=== PATIENT | female | born 1970 | race Hispanic/Latino ===

== ENCOUNTER 2020-08-04 10:14 | Emergency (ER) | payer BC ==
[~2020-08-04] VITALS: Ht 165.1 cm; Wt 100.2 kg
--- NOTE | 2020-08-04 10:30 | Emergency Department Note ---
History of Present Illnes History of Present Illness Chief Complaint: General Medicine Complaints History of Present Illness This is a 50 year old female Chief Complaint Comment PATIENT IN FROM HOME WITH COMPLAINTS OF RIGHT FLANK PAIN/BURNING RADIATING TO ABDOMEN X 1 WEEK. PATIENT COMPLAINS OF NAUSEA, BUT DENIES VOMITING OR DIARRHEA. RATES PAIN 7/10. Historian: Patient Arrival Mode: Car Clinical Research Manager Required: No Onset (how long ago): week(s) (1) Location: R flank Quality: burning Radiation: Reports back, Reports abdomen Severity: mild Onset quality: gradual Duration (how long): week(s) (1) Timing of current episode: constant Progression: worsening Chronicity: new Context: Denies recent illness, Denies recent surgery Relieving factors: none Exacerbating factors: none Associated symptoms: Reports denies other symptoms Treatments prior to arrival: none Past Medical/Family History Physician Review I have reviewed the patient's past medical and family history. Any updates have been documented here. Past Medical History Recent Fever: No Clinical Suspicion of Infectio: No New/Unexplained Change in Ment: No Past Medical History: None Past Surgical History: Cholecysctectomy, Tubal Ligation Review of Systems Review of Systems Constitutional: Reports as per HPI EENTM: Reports no symptoms Cardiovascular: Reports no symptoms Respiratory: Reports no symptoms Gastrointestinal: Reports no symptoms Genitourinary: Reports no symptoms Musculoskeletal: Reports no symptoms Integumentary: Reports as per HPI (Burning from midlineback to midline abdomen on R side) Neurological: Reports no symptoms Psychological: Reports no symptoms Endocrine: Reports no symptoms Hematological/Lymphatic: Reports no symptoms Physical Exam Related Data Allergies: Coded Allergies: No Known Allergies (Unverified , 08/04/20) Triage Vital Signs Vital Signs Date Time Temp Pulse Resp B/P (MAP) Pulse Ox O2 Delivery O2 Flow Rate FiO2 08/04/20 10:17 98.2 89 20 146/80 100 Room Air Vital signs reviewed: Yes Physical Exam CONSTITUTIONAL Constitutional: Present well-developed, Present well-nourished HENT HENT: Present normocephalic, Present atraumatic, Present oropharynx clear/moist, Present nose normal HENT L/R: Present left ext ear normal, Present right ext ear normal EYES Eyes: Reports PERRL, Reports conjunctivae normal NECK Neck: Present ROM normal PULMONARY Pulmonary: Present effort normal, Present breath sounds normal CARDIOVASCULAR Cardiovascular: Present regular rhythm, Present heart sounds normal, Present capillary refill normal, Present normal rate GASTROINTESTINAL Abdominal: Present soft, Present bowel sounds normal, Present tender (Mild, epigastric); Absent nontender GENITOURINARY Genitourinary: Present exam deferred SKIN Skin: Present warm, Present dry MUSCULOSKELETAL Musculoskeletal: Present ROM normal NEUROLOGICAL Neurological: Present alert, Present oriented x 3, Present no gross motor or sensory deficits PSYCHOLOGICAL Psychological: Present mood/affect normal, Present judgement normal Results Laboratory Lab results reviewed: Yes Imaging Imaging results reviewed: Yes Diagnostics Tests Diagnostic test(s) reviewed: Yes Procedures 12 Lead ECG Interpretation ECG Interpretation : Clinical Research Manager: Interpreted by ED physician Date: Aug 04, 2020 Rhythm: sinus rhythm Rate: normal QRS axis: normal ST segments normal: Yes T waves normal: Yes Clinical Impression: normal ECG Assessment & Plan Medical Decision Making MDM 50-year-old female presents for right-sided burning from the back to mid abdomen. The pain is made worse by light palpation. The abdomen is nontender. She has had her gallbladder removed 2 years ago. She denies exacerbating or alleviating factors. She has had chickenpox as a child. Examination shows no obvious lesions. Initial differential significant for shingles versus various abdominal pathologies vs nephrolithiasis versus atypical ACS. EKG is well- appearing, abdominal labs additionally are well-appearing. No CVA tenderness, no pain with urination. CT abd/pelv shows no acute findings. Doubt emergent process at this time. GI cocktail moderately improved symptoms. Diagnosis favors PUD vs other epigastric pain. She will follow up with her primary care provider or return to the emergency department for worsening symptoms. Patient is appropriate for discharge.Part of this note was dictated with Marlen and is subject to recognition errors. Reassessment Reassessment time: 10:37 Reassessment Well appearing, NAD Assessment & Plan Final Impression: (1) Epigastric abdominal pain Depart Disposition: HOME, SELF-CARE Last Vital Signs Date Time Temp Pulse Resp B/P (MAP) Pulse Ox O2 Delivery O2 Flow Rate FiO2 08/04/20 10:17 98.2 89 20 146/80 100 Room Air Home Meds Active Scripts Cephalexin Monohydrate (KEFLEX) 500 Mg Capsule, 500 MG PO BID for 5 Days, #10 TAB 0 Refills Prov:BRIGIDA CHATMAN MD 08/04/20 Discontinued Scripts Acyclovir (ACYCLOVIR) 800 Mg Tablet, 800 MG PO 5XD for 7 Days, #35 CAP Prov:BRIGIDA CHATMAN MD 08/04/20 BRIGIDA CHATMAN MD Aug 04, 2020 10:30
[2020-08-04] MEDS ORDERED: ACYCLOVIR800 MG PO (10:40)
[2020-08-04 10:41] LABS: BASOPHILS % 0.6 % (0.0-1.0); EOSINOPHILS # (AUTO) 0.2 (0.0-0.4); EOSINOPHILS % 2.8 % (0.0-6.0); HEMATOCRIT 41.1 % (34.2-44.1); HEMOGLOBIN 13.4 g/dL (12.0-16.0); LYMPHOCYTES # (AUTO) 1.2 (1.0-3.2); LYMPHOCYTES % 22.5 % (18.0-39.1); MEAN CORPUSCULAR HEMOGLOBIN 28.7 pg (28-32); MEAN CORPUSCULAR HGB CONC 32.6 g/dL (31-35); MONOCYTES # (AUTO) 0.3 (0.2-0.8); MONOCYTES % 5.2 % (4.4-11.3); NEUTROPHILS # (AUTO) 3.7 (2.1-6.9); NEUTROPHILS % 68.5 % (38.7-80.0); PLATELET COUNT 239 x10e3/uL (140-360); RED BLOOD COUNT 4.67 x10e6/uL (3.6-5.1); RED CELL DISTRIBUTION WIDTH 14.5 % (11.7-14.4)
[2020-08-04 10:48] LABS: CLARITY,URINE CLEAR (CLEAR); COLOR,URINE YELLOW (YELLOW)
[2020-08-04 10:49] LABS: BILIRUBIN,URINE NEGATIVE (NEGATIVE); KETONES,URINE NEGATIVE (NEGATIVE); LEUKOCYTE ESTERASE ,URINE MODERATE (NEGATIVE); NITRITE,URINE NEGATIVE (NEGATIVE); PROTEIN,URINE DIPSTICK NEGATIVE (NEGATIVE); URINE UROBILINOGEN 1 mg/dL (0.2 - 1)
[2020-08-04 10:54] LABS: RBC,URINE 0-5 /HPF (0-5)
[2020-08-04 10:55] LABS: BACTERIA,URINE MODERATE /HPF; EPITHELIAL CELLS,URINE MODERATE /LPF
--- OUTSIDE RECORDS SUMMARY | 2020-08-04 10:59 | XMS REPORT | Continuity of Care Document ---
Author Author [facility] t Organization [facility] Address [address] [place] [address] Phone Unavailable Care Team Providers Care Lan Specialist Name Role Phone Unavailable Unavailable Payers Payer Name Policy Type Policy Number Effective Date Expiration Date S ource Problems This patient has no known problems. Allergies, Adverse Reactions, Alerts Allergy Name Allergy Type Status Severity Reaction(s) Onset Date Inacti ve Date Treating Clinician Comments Source No Known Allergies DA Active U 2020-05-08 00:00:00 [facility] No Known Allergies DA Active U 2020-04-10 00:00:00 [facility] No Known Allergies DA Active U 2019-12-03 00:00:00 [facility] No Known Allergies DA Active U 2019-01-03 00:00:00 [facility] No Known Allergies DA Active U 2018-05-13 00:00:00 [facility] No Known Allergies DA Active U 2017-10-03 00:00:00 [facility] Medications This patient has no known medications. Procedures This patient has no known procedures. Results Test Description Test Time Test Comments Results Result Comments Source - CT ABD PELVIS W/O CONT 2020-05-08 15:19:00 N luzmaria: HEAVEN FREEDMAN [facility] : 1970 Age/S: 49 / F Carleen Spears Unit #: [id number] Loc: [place] [address] Phys: Mary Peck NP Acct: [id number] Dis Date: Status: REG ER PHONE #: [phone] Exam Date: 05/08/2020 1503 FAX #: [phone] Reason: dysuria EXAMS: CPT CODE: [id number] CT ABD PELVIS W/O CONT 38554 REASON FOR EXAM: dysuria EXAM ORDER DATE: 05/08/2020 1:35 PM Ordering: Mary Peck NP Attending:Gonzales Whittington MD Location:[facility] PROCEDURE: - CT ABD PELVIS W/O CONT COMPARISON: FINDINGS: CT images of the abdomen and pelvis were obtained without IV and without oral contrast at 5mm. Dose modulation, iterative reconstruction, and/or weight based adjustment of the MA/KV was utilized to reduce the radiation dose to as low as reasonably achievable. The liver, spleen, pancreas are grossly within normal limits. The patient is status post cholecystectomy The kidneys are within normal limits. The urinary bladder is unremarkable. The colon, small bowel, and stomach are within normal limits without evidence of obstruction. The appendix is unremarkable No evidence of free air or free fluid. The uterus is unremarkable. IMPRESSION: No acute findings in the abdomen. at 1519 Reported and signed by: Angelito Lucero M.D. CC: Mary Peck NP; Gonzales Whittington MD Technologist:Ivette Villalpando RT(R),CT CTDI: DLP: Trnscb Date/Time: 05/08/2020 (151) [place] Orig Print D/T: S: 05/08/2020 (1522) PAGE 1 Signed Report BASIC METABOLIC PANEL 2020-05-08 13:26:00 Test Item SODIUM (test code = NA) 140 mmol/L 136-145 N POTASSIUM (test code = K) 4.2 mmol/L 3.5-5.1 N CHLORIDE (test code = CL) 108.0 mmol/L 98-107 H CARBON DIOXIDE (test code = CO2) 26.0 mmol/L 21-32 N ANION GAP (test code = GAP) 10.2 10-20 N GLUCOSE (test code = GLU) 101 mg/dL 74-106 N BLOOD UREA NITROGEN (test code = BUN) 9 mg/dL 7-18 N GLOMERULAR FILTRATION RATE (test code = GFR) > 60 mL/min >=60 Estimated GFR by using Modified MDRD formula.Chronic kidney disease is defined as either kidney damageor GFR <60 mL/min/1.73 m2 for >3 months. CREATININE (test code = CREAT) 0.80 mg/dL 0.55-1.02 N Note change in reference range due to change in reagent. BUN/CREATININE RATIO (test code = BUN/CREA) 11.4 10-20 N CALCIUM (test code = CA) 9.1 mg/dL 8.5-10.1 N HEPATIC FUNCTION [id number] 13:26:00* Test Item Value Reference Range Interpretation Comments TOTAL PROTEIN (test code = PROT) 8.2 gram/dL 6.4-8.2 N ALBUMIN (test code = ALB) 3.7 g/dL 3.4-5.0 N GLOBULIN (test code = GLOB) 4.5 gram/dL 2.7-4.2 H ALBUMIN/GLOBULIN RATIO (test code = A/G) 0.8 0.75-1.50 N BILIRUBIN TOTAL (test code = BILT) 0.20 mg/dL 0.0-1.0 N BILIRUBIN DIRECT (test code = BILD) 0.09 mg/dL 0.0-0.20 N SGOT/AST (test code = AST) 17 IUnit/L 15-37 N SGPT/ALT (test code = ALT) 35 IUnit/L 12-78 N ALKALINE PHOSPHATASE TOTAL (test code = ALKP) 118 IUnit/L 45-117 H Note change in reference range due to change in reagent. [id number] 13:26:00* Test Item Value Reference Range Interpretation Comments LIPASE (test code = LIP) 150 U/L 73.0-393.0 N HCG SERUM [id number] 13:26:00* Test Item Value Reference Range Interpretation Comments HCG SERUM QUAL (test code = HCGQL) NEGATIVE NEGATIVE This HCGQL test is NOT applicable for MALE patients.Check with nurse about probable order error.If Tumor Marker Test needed, nurse should order test "HCGTU"(Test #550.60569) BASIC METABOLIC [id number] 13:24:00* Test Item Value Reference Range Interpretation Comments SODIUM (test code = NA) 140 mmol/L 136-145 N POTASSIUM (test code = K) 4.2 mmol/L 3.5-5.1 N CHLORIDE (test code = CL) 108.0 mmol/L 98-107 H CARBON DIOXIDE (test code = CO2) mmol/L 21-32 ANION GAP (test code = GAP) 10-20 GLUCOSE (test code = GLU) mg/dL 74-106 BLOOD UREA NITROGEN (test code = BUN) mg/dL 7-18 GLOMERULAR FILTRATION RATE (test code = GFR) mL/min >=60 CREATININE (test code = CREAT) mg/dL 0.55-1.02 BUN/CREATININE RATIO (test code = BUN/CREA) 10-20 CALCIUM (test code = CA) mg/dL 8.5-10.1 HEPATIC FUNCTION [id number] 13:24:00* Test Item Value Reference Range Interpretation Comments TOTAL PROTEIN (test code = PROT) gram/dL 6.4-8.2 ALBUMIN (test code = ALB) g/dL 3.4-5.0 GLOBULIN (test code = GLOB) gram/dL 2.7-4.2 ALBUMIN/GLOBULIN RATIO (test code = A/G) 0.75-1.50 BILIRUBIN TOTAL (test code = BILT) mg/dL 0.0-1.0 BILIRUBIN DIRECT (test code = BILD) mg/dL 0.0-0.20 SGOT/AST (test code = AST) IUnit/L 15-37 SGPT/ALT (test code = ALT) IUnit/L 12-78 ALKALINE PHOSPHATASE TOTAL (test code = ALKP) IUnit/L 45-117 [id number] 13:24:00* Test Item Value Reference Range Interpretation Comments LIPASE (test code = LIP) U/L 73.0-393.0 HCG SERUM [id number] 13:24:00* Test Item Value Reference Range Interpretation Comments HCG SERUM QUAL (test code = HCGQL) NEGATIVE NEGATIVE This HCGQL test is NOT applicable for MALE patients.Check with nurse about probable order error.If Tumor Marker Test needed, nurse should order test "HCGTU"(Test #550.05855) BASIC METABOLIC [id number] 13:18:00* Test Item Value Reference Range Interpretation Comments SODIUM (test code = NA) mmol/L 136-145 POTASSIUM (test code = K) mmol/L 3.5-5.1 CHLORIDE (test code = CL) mmol/L 98-107 CARBON DIOXIDE (test code = CO2) mmol/L 21-32 ANION GAP (test code = GAP) 10-20 GLUCOSE (test code = GLU) mg/dL 74-106 BLOOD UREA NITROGEN (test code = BUN) mg/dL 7-18 GLOMERULAR FILTRATION RATE (test code = GFR) mL/min >=60 CREATININE (test code = CREAT) mg/dL 0.55-1.02 BUN/CREATININE RATIO (test code = BUN/CREA) 10-20 CALCIUM (test code = CA) mg/dL 8.5-10.1 HEPATIC FUNCTION [id number] 13:18:00* Test Item Value Reference Range Interpretation Comments TOTAL PROTEIN (test code = PROT) gram/dL 6.4-8.2 ALBUMIN (test code = ALB) g/dL 3.4-5.0 GLOBULIN (test code = GLOB) gram/dL 2.7-4.2 ALBUMIN/GLOBULIN RATIO (test code = A/G) 0.75-1.50 BILIRUBIN TOTAL (test code = BILT) mg/dL 0.0-1.0 BILIRUBIN DIRECT (test code = BILD) mg/dL 0.0-0.20 SGOT/AST (test code = AST) IUnit/L 15-37 SGPT/ALT (test code = ALT) IUnit/L 12-78 ALKALINE PHOSPHATASE TOTAL (test code = ALKP) IUnit/L 45-117 [id number] 13:18:00* Test Item Value Reference Range Interpretation Comments LIPASE (test code = LIP) U/L 73.0-393.0 HCG SERUM [id number] 13:18:00* Test Item Value Reference Range Interpretation Comments HCG SERUM QUAL (test code = HCGQL) NEGATIVE NEGATIVE This HCGQL test is NOT applicable for MALE patients.Check with nurse about probable order error.If Tumor Marker Test needed, nurse should order test "HCGTU"(Test #550.80925) URINALYSIS [id number] 13:09:00* Test Item Value Reference Range Interpretation Comments UA COLOR (test code = COLU) YELLOW YELLOW UA APPEARANCE (test code = APPU) CLEAR CLEAR UA GLUCOSE DIPSTICK (test code = DGLUU) NEGATIVE mg/dL NEGATIVE UA BILIRUBIN DIPSTICK (test code = BILU) NEGATIVE mg/dL NEGATIVE UA KETONE DIPSTICK (test code = KETU) NEGATIVE mg/dL NEGATIVE UA SPECIFIC GRAVITY (test code = SGU) 1.022 1.001-1.035 UA BLOOD DIPSTICK (test code = CROW) 0.5 mg/dL (2+) mg/dL NEGATIVE A UA PH DIPSTICK (test code = YVONNE) 5.5 5.0-8.0 UA PROTEIN DIPSTICK (test code = PROU) 10 (Trace) mg/dL NEGATIVE A UA UROBILINIOGEN DIPSTICK (test code = URO) Normal mg/dL NEGATIVE UA NITRITE DIPSTICK (test code = KIMBERLY) NEGATIVE NEGATIVE UA LEUKOCYTE ESTERASE W REFLEX (test code = LEUUR) 75 Sen/uL (1+) Sen/uL NEGATIVE A UA WBC (test code = WBCU) 6-10 per HPF 0-5 A UA RBC (test code = RBCU) 10-15 #/HPF 0-5 UA EPITHELIAL CELLS (test code = EPIU) MOD per HPF FEW UA BACTERIA (test code = BACU) FEW #/HPF NONE A UA MUCUS (test code = MUCU) MANY #/LPF FEW A Urine Source? Clean CatchCBC W/O [id number] 13:03:00* Test Item Value Reference Range Interpretation Comments WHITE BLOOD CELL (test code = WBC) 5.7 K/mm3 4.5-12.5 N RED BLOOD CELL (test code = RBC) 4.78 mill/mm3 3.7-5.2 N HEMOGLOBIN (test code = HGB) 13.9 gram/dL 11.5-15.5 N HEMATOCRIT (test code = HCT) 41.6 % 36.0-46.0 N MEAN CELL VOLUME (test code = MCV) 87.0 fL 80-98 N MEAN CELL HGB (test code = MCH) 29.1 picogram 27.0-33.0 N MEAN CELL HGB CONCETRATION (test code = MCHC) 33.4 gram/dL 33.0-36. 0 N RED CELL DISTRIBUTION WIDTH (test code = RDW) 13.3 % 11.6-16. 2 N PLATELET COUNT (test code = PLT) 261 K/mm3 150-450 N MEAN PLATELET VOLUME (test code = MPV) 11.2 fL 6.7-11.0 H CBC W/O [id number] 13:01:00* Test Item Value Reference Range Interpretation Comments WHITE BLOOD CELL (test code = WBC) K/mm3 4.5-12.5 RED BLOOD CELL (test code = RBC) mill/mm3 3.7-5.2 HEMOGLOBIN (test code = HGB) 13.9 gram/dL 11.5-15.5 N HEMATOCRIT (test code = HCT) 41.6 % 36.0-46.0 N MEAN CELL VOLUME (test code = MCV) fL 80-98 MEAN CELL HGB (test code = MCH) picogram 27.0-33.0 MEAN CELL HGB CONCETRATION (test code = MCHC) gram/dL 33.0-36. 0 RED CELL DISTRIBUTION WIDTH (test code = RDW) % 11.6-16. 2 PLATELET COUNT (test code = PLT) K/mm3 150-450 MEAN PLATELET VOLUME (test code = MPV) fL 6.7-11.0 - CT ABD PELVIS [id number] 21:40:00 Name: HEAVEN FREEDMAN [facility] : 1970 Age/S: 49 / F [address] Unit #: [id number] Loc: Boris [place] [address] Phys: Nila Bird NP Acct: [id number] Dis Date: Status: DEP ER PHONE #: [phone] Exam Date: 05/02/2020 2110 FAX #: [phone] Reason: Lower abdominal pain EXAMS: CPT CODE: [id number] CT ABD PELVIS W/CONT 06073 EXAM: CT of the abdomen and pelvis with contrast; INFORMATION: Lower abdominal pain, suprapubic pain; TECHNIQUE: CT dose reduction protocol; 5 mm cuts were obtained through the abdomen and pelvis during and after intravenous infusion of contrast material. FINDINGS: Liver, spleen and pancreas are of normal size and shape; they show homogeneous enhancement without focal lesions. Status post cholecystectomy; no biliary dilatation. Adrenal glands and kidneys are unremarkable; no evidence of adenopathy; No evidence of appendicitis or other acute bowel abnormalities. No pelvic mass lesions. No abnormal fluid collections. Scans through the lung bases are clear. IMPRESSION: No evidence of acute abdominal or pelvic abnormalities. Location code: GW at 2139 Reported and signed by: Roby Billinsg M.D. CC: Nila Bird NP Technologist:Ivette Villalpando RT(R),CT CTDI: DLP: Trnscb Date/Time: 05/02/2020 (2139) tNA Orig Print D/T: S: 05/02/2020 (2142) PAGE 1 Signed Report - CT ABD PELVIS [id number] 15:07:00 Name: HEAVEN FREEDMAN [facility] : 1970 Age/S: 49 / F [address] [facility] Unit #: [id number] Loc: Demetrio [place] [address] Phys: William Barragan MD Acct: [id number] Di s Date: Status: [facility] ER PHONE #: Exam Date: 04/10/20201405 FAX #: Reason: LLQ pain EXAMS: CPT CODE: [id number] CT ABD PELVIS W/CONT 52936 CT ABDOMEN AND PELVIS WITH CONTRAST INDICATION: Left lower quadrant abdominal pain, back and leg pain. TECHNIQUE: 100 mL Isovue-300 Intravenous contrast was administered followed by CT imaging of the abdomen and pelvis with axial, coronal and sagittal reconstructions. CT imaging performed at this loca tion utilizes radiation dose optimization technique which includes one or more of the followin) Automated exposure control; 2) Adjustment of the mA and/or kV according to patient's size; 3) Use of iterative recon struction techniques. DLP (mGy-cm): 761 COMPARISONS: CT abdomen a nd pelvis 12/03/2019 FINDINGS: There is no acute lum bar spine fracture or dislocation. There is no lumbar spinal canal stenos is detected. There is no acute osseous fracture or dislocation. There is a small fat filled, noninflamed umbilical hernia. The aorta reveals no aneurysm or acute process. The inferior vena cava reveals no acute process. The lung bases reveal no acute process. There is hepatomegaly measuring 20.7 cm craniocaudal length. There is no acute hepatic process. The gallbladder is surgically absent. The pancreas reveals no acute process. The spleen reveals no acute process. The adrenal glands reveal no acute process or mass. There is no acute renal process. The urinary bladder reveals no acute process. There is no acute reproductive structure abnormality. There are benign vascular calcifications in the pelvis. There is no intra-abdominal free fluid. There is no intra-abdominal free gas. There is no lymphadenopathy. PAGE 1 Signed Report (CONTINUED) Name: HEAVEN FREEDMAN [facility] : 1970 Age/S: 49 / F [address] [place], [place] [address] Unit #: [id number] Loc: [place] [address] Phys: Frank Barragan MD Acct: [id number] Dis Date: Status: [facility] ER PHONE #: [phone] Exam Date: 04/10/2020 140 FAX #: [phone] Reason: LLQ pain EXAMS: CPT CODE: [id number] CT ABD PELVIS W/CONT 19313 <Continued> There is no evidence of acute appendicitis. There is underdistention and mild wall thickening of the colon from the distal transverse segment to the rectum. This is probably due to underdistention and bowel spasm but I cannot entirely exclude mild segmental inflammation. There is no bowel obstruction or perforation. There is mild nonacute colonic diverticulosis. IMPRESSION: 1. There is underdistention and mild wall thickening of the colon from the distal transverse segment to the rectum. This is probably due to underdistention and bowel spasm but I cannot entirely exclude mild segmental inflammation. There is no bowel obstruction or perforation. 2. There is mild nonacute colonic diverticulosis. 3. There is no evidence of acute appendicitis. 4. There is nonspecific hepatomegaly. 5. Normal kidneys. 6. Normal lumbar spine. at 1507 Reported and signed by: Filiberto Cannon D.O. CC: Frank Barragan MD Technologist:RT Saad(R)(CT); Marcel CTDI: DLP: Trnscb Date/Time: 04/10/2020 (1507) [id number] Orig Print D/T: S: 04/10/2020 (5148) PAGE 2 Signed Report LACTIC [id number] 14:33:00* Test Item Value Reference Range Interpretation Comments LACTIC ACID (test code = LACT) 1.2 mmol/L 0.4-1.9 N COMPREHENSIVE METABOLIC [id number] 13:59:00* Test Item Value Reference Range Interpretation Comments SODIUM (test code = NA) 139 mEq/L 134-147 N POTASSIUM (test code = K) 3.9 mEq/L 3.4-5.0 N CHLORIDE (test code = CL) 106 mEq/L 100-108 N CARBON DIOXIDE (test code = CO2) 26 mEq/L 21-33 N ANION GAP (test code = GAP) 11 0-20 N GLUCOSE (test code = GLU) 100 mg/dL 70-110 N BLOOD UREA NITROGEN (test code = BUN) 10 mg/dL 7-18 N GLOMERULAR FILTRATION RATE (test code = GFR) 76.9 95-105 L Units of measure = ml/min/1.73 m2 CREATININE (test code = CREAT) 0.8 mg/dL 0.6-1.3 N TOTAL PROTEIN (test code = PROT) 8.0 g/dL 6.4-8.2 N ALBUMIN (test code = ALB) 3.70 g/dL 3.4-5.0 N CALCIUM (test code = CA) 8.9 mg/dL 8.0-10.5 N BILIRUBIN TOTAL (test code = BILT) 0.3 MG/DL <1.5 N SGOT/AST (test code = AST) 26 IUnit/L 15-37 N SGPT/ALT (test code = ALT) 49 IUnit/L 15-65 N ALKALINE PHOSPHATASE TOTAL (test code = ALKP) 112 IUnit/L 20-125 N [id number] 13:59:00* Test Item Value Reference Range Interpretation Comments LIPASE (test code = LIP) 143 IUnit/L 73-393 N COMPREHENSIVE METABOLIC [id number] 13:55:00* Test Item Value Reference Range Interpretation Comments SODIUM (test code = NA) 139 mEq/L 134-147 N POTASSIUM (test code = K) 3.9 mEq/L 3.4-5.0 N CHLORIDE (test code = CL) 106 mEq/L 100-108 N CARBON DIOXIDE (test code = CO2) 26 mEq/L 21-33 N ANION GAP (test code = GAP) 11 0-20 N GLUCOSE (test code = GLU) 100 mg/dL 70-110 N BLOOD UREA NITROGEN (test code = BUN) 10 mg/dL 7-18 N GLOMERULAR FILTRATION RATE (test code = GFR) 95-105 CREATININE (test code = CREAT) mg/dL 0.6-1.3 TOTAL PROTEIN (test code = PROT) g/dL 6.4-8.2 ALBUMIN (test code = ALB) g/dL 3.4-5.0 CALCIUM (test code = CA) 8.9 mg/dL 8.0-10.5 N BILIRUBIN TOTAL (test code = BILT) MG/DL <1.5 SGOT/AST (test code = AST) IUnit/L 15-37 SGPT/ALT (test code = ALT) IUnit/L 15-65 ALKALINE PHOSPHATASE TOTAL (test code = ALKP) IUnit/L 20-125 [id number] 13:55:00* Test Item Value Reference Range Interpretation Comments LIPASE (test code = LIP) 143 IUnit/L 73-393 N UA RFLX MICR CULT IF [id number] 13:50:00* Test Item Value Reference Range Interpretation Comments UA COLOR (test code = COLU) YELLOW YEL/STRAW UA APPEARANCE (test code = APPU) CLEAR CLEAR UA GLUCOSE DIPSTICK (test code = DGLUU) NEGATIVE NEGATIVE UA BILIRUBIN DIPSTICK (test code = BILU) NEGATIVE NEGATIVE UA KETONE DIPSTICK (test code = KETU) NEGATIVE NEGATIVE UA SPECIFIC GRAVITY (test code = SGU) 1.024 1.005-1.030 N UA BLOOD DIPSTICK (test code = CROW) NEGATIVE NEGATIVE UA PH DIPSTICK (test code = YVONNE) 5.0 5.0-7.0 N UA PROTEIN DIPSTICK (test code = PROU) NEGATIVE NEGATIVE UA UROBILINIOGEN DIPSTICK (test code = URO) 0.2 mg/dL 0.2-1.0 UA NITRITE DIPSTICK (test code = KIMBERLY) NEGATIVE NEGATIVE UA LEUKOCYTE ESTERASE DIPSTICK (test code = LEUU) TRACE NEGA TIVE A UA WBC (test code = WBCU) 4-9 WBC/HPF 0-3 A UA RBC (test code = RBCU) 0-3 RBC/HPF 0-3 UA WBC NO REFLEX (test code = WBCUCL) 4-9 WBC/HPF 0-3 A UA BACTERIA (test code = BACU) NONE SEEN /HPF NONE SEEN UA SQUAMOUS CELLS (test code = SQU) 6-10 /HPF NONE SEEN A UA MUCUS (test code = MUCU) 3+ /LPF NONE SEEN A Indication for culture: Flank PainSpecimen Description: CLEAN CATCHCBC W/AUTO [id number] 13:41:00* Test Item Value Reference Range Interpretation Comments WHITE BLOOD CELL (test code = WBC) 5.89 x10 3/uL 4.5-11.0 N RED BLOOD CELL (test code = RBC) 4.50 x10 6/uL 3.54-5.02 N HEMOGLOBIN (test code = HGB) 13.0 g/dL 11.0-15.0 N HEMATOCRIT (test code = HCT) 39.4 % 33.0-45.0 N MEAN CELL VOLUME (test code = MCV) 87.6 fL 81.0-99.0 N MEAN CELL HGB (test code = MCH) 28.9 pg 27.0-33.0 N MEAN CELL HGB CONCETRATION (test code = MCHC) 33.0 g/dL 33.0-37. 0 N RED CELL DISTRIBUTION WIDTH CV (test code = RDW) 13.1 % 11.5- 14.5 N RED CELL DISTRIBUTION WIDTH SD (test code = RDW-SD) 42.2 fL 37 .0-54.0 N PLATELET COUNT (test code = PLT) 232 x10 3/uL 150-400 N MEAN PLATELET VOLUME (test code = MPV) 11.5 fL 7.0-9.0 H NEUTROPHIL % (test code = NT%) 62.6 % 56.0-77.0 N IMMATURE GRANULOCYTE % (test code = IG%) 0.2 % 0.0-2.0 N LYMPHOCYTE % (test code = LY%) 27.2 % 14.0-32.0 N MONOCYTE % (test code = MO%) 5.6 % 4.8-9.0 N EOSINOPHIL % (test code = EO%) 3.7 % 0.3-3.7 N BASOPHIL % (test code = BA%) 0.7 % 0.0-2.0 N NUCLEATED RBC % (test code = NRBC%) 0.0 % 0-0 N NEUTROPHIL # (test code = NT#) 3.69 x10 3/uL 2.0-7.6 N IMMATURE GRANULOCYTE # (test code = IG#) 0.01 x10 3/uL 0.00-0.03 N LYMPHOCYTE # (test code = LY#) 1.60 x10 3/uL 1.0-3.8 N MONOCYTE # (test code = MO#) 0.33 x10 3/uL 0.1-0.8 N EOSINOPHIL # (test code = EO#) 0.22 x10 3/uL 0.0-0.2 H BASOPHIL # (test code = BA#) 0.04 x10 3/uL 0.0-0.2 N NUCLEATED RBC # (test code = NRBC#) 0.00 x10 3/uL 0.0-0.1 N MANUAL DIFF REQUIRED (test code = MDIFF) NO INFLUENZA A [id number] 17:17:00* Test Item Value Reference Range Interpretation Comments INFLUENZA A (test code = FLUAPCR) Negative Negative INFLUENZA B (test code = FLUBPCR) Negative Negative - XR CHEST 2 [id number] 16:04:00 FAX: Rebecca Bradford [phone] [place]: St: PRE Name: HEAVEN MAYA [facility] : [birth year] Age/S: 49/F [address] [place] [address] Unit #: [id number] Loc: [place] [address] Phys: Rebecca Bradford Acct: [id number] Dis Date: Status: PRE ER PHONE #: [phone] Exam Date: 01/04/2020 160 FAX #: [phone] Reason: COUGH FEVER FLU SX EXAMS: CPT CODE: [id number] XR CHEST 2 V 20122 CLINICAL HISTORY: COUGH FEVER FLU SX COMPARISON: September 11, 2019 PA and lateral films of the chest demonstrate that heart size is normal. Lung de dios are clear. No evidence of pneumonia or congestive failure is seen. Regional skeletal structures demonstrate no acute abnormality. IMPRESSION: No evidence of pneumonia or congestive failure is seen. Electron ically Signed by Christina Skelton on 01/04/2020 at 1604 Reported and signed by: Ever Skelton M.D. CC: Arsh Bradford Technologist: Rakel gallagher RT(R) Trnscrd Date/Time/By: 01/04/2020 (7150) : By: Glenn Orig Print D/T: S: 01/04/2020 (4478) PAGE 1 Signed Report CHLAMYDIA GC DNA BY [id number] 05:39:00* Test Item Value Reference Range Interpretation Comments C. TRACHOMATIS DNA BY PCR (test code = CHLAMTDNA) Negative Nega tive N. GONORRHOEAE DNA BY PCR (test code = NGONORDNA) Negative Nega tive [facility]formed At: [facility] [facility], [place] [id number] tatiana Tolliver MD Ph:[phone] BASIC METABOLIC [id number] 15:20:00* Test Item Value Reference Range Interpretation Comments SODIUM (test code = NA) 138 mEq/L 134-147 N POTASSIUM (test code = K) 3.8 mEq/L 3.4-5.0 N CHLORIDE (test code = CL) 107 mEq/L 100-108 N CARBON DIOXIDE (test code = CO2) 27 mEq/L 21-33 N ANION GAP (test code = GAP) 8 0-20 N GLUCOSE (test code = GLU) 96 mg/dL 70-110 N BLOOD UREA NITROGEN (test code = BUN) 11 mg/dL 7-18 N GLOMERULAR FILTRATION RATE (test code = GFR) 89.7 95-105 L Units of measure = ml/min/1.73 m2 CREATININE (test code = CREAT) 0.7 mg/dL 0.6-1.3 N CALCIUM (test code = CA) 9.1 mg/dL 8.0-10.5 N BASIC METABOLIC [id number] 15:18:00* Test Item Value Reference Range Interpretation Comments SODIUM (test code = NA) 138 mEq/L 134-147 N POTASSIUM (test code = K) 3.8 mEq/L 3.4-5.0 N CHLORIDE (test code = CL) 107 mEq/L 100-108 N CARBON DIOXIDE (test code = CO2) 27 mEq/L 21-33 N ANION GAP (test code = GAP) 8 0-20 N GLUCOSE (test code = GLU) 96 mg/dL 70-110 N BLOOD UREA NITROGEN (test code = BUN) 11 mg/dL 7-18 N GLOMERULAR FILTRATION RATE (test code = GFR) 95-105 CREATININE (test code = CREAT) mg/dL 0.6-1.3 CALCIUM (test code = CA) 9.1 mg/dL 8.0-10.5 N - CT ABD PELVIS [id number] 15:13:00 Name: [facility] [place] : 1970 Age/S: 49 / F [address] [place] [address] Unit #: [id number] Loc: [facility] [place] [address] Phys: Vickie Mccormick Acct: [id number] Dis Date: Status: [facility] ER PHONE #: [phone] Exam Date: 12/03/2019 1454 FAX #: [phone] Reason: RLQ pain EXAMS: CPT CODE: [id number] CT ABD PELVIS W/CONT [id number] EXAM: CT ABDOMEN AND PELVIS WITH CONTRAST DATE: 12/03/2019 1:49 PM : 1970; Age: 49 years y/o Female INDICATION: Right hip pain, RLQ pain COMPARISON: None. TECHNIQUE: Volumetric CT of the abdomen and pelvis is acquired following the intravenous administration of contrast. Axial, coronal and sagittal images are provided. IV contrast: 100 mL Isovue Enteric contrast: None. DLP: 700 mGy-cm CT imaging performed at this location utilizes radiation dose optimization techniques which include one or more of the following: -Automated exposure control -Adjustment of the mA and/or kV according to patient size -Use of iterative reconstruction technique FINDINGS: Lower thorax: Clear. Liver: Normal. Gallbladder: Surgically absent. Adrenals: Normal. Kidneys and ureters: Normal. Spleen: Normal. Pancreas: Normal. Visualized Gastrointestinal tract: Stomach is normal. No significant small bowel dilatation. No obstruction. Normal appendix. Occasional colonic diverticula are seen. Peritoneum, mesentery and retroperitoneum: No free air, lymphadenopathy, ascites or loculated fluid. Reproductive organs: Uterus is retroverted. No adnexal abnormalities. PAGE 1 Signed Report (CONTINUED) Name: HEAVEN MAYA [facility] : 9[birth year] Age/S: 49 / F [address] [place] [address] Unit #: [id number] Loc: [place] [address] Phys: Vickie Mccormick Acct: [id number] Dis Date: Status: [facility] ER PHONE #: Exam Date: 12/03/2019 1454 FAX #: [phone] Reason: RLQ pain EXAMS: CPT CODE: [id number] CT ABD PELVIS W/CONT 38129 <Continued> Bladder: Decompressed or not fully distended. Soft tissues: Small fat- containing umbilical hernia. Bones: No acute abnormality. Age- related degenerative findings. IMPRESSION: 1. No acute intra-abdominal process. 2. Colonic diverticulosis without acute diverticulitis. SL: [id number] at 1513 Reported and signed by: Pako Graf D.O. CC: Vickie JOSE Technologist:Trinidad Farrell RT(R)(CT) CTDI: DLP: Trnscb Date/Time: 12/03/2019 (1512) [email or web address].MP37 Orig Print D/T: S: 12/03/2019 (2656) PAGE 2 Signed Report - CT ABD PELVIS W/[id number] 15:13:00 Name: HEAVEN FREEDMAN Gaston [facility] : 1970 Age/S: 49 / F [address] [place] [address] Unit #: [id number] Loc: [place] [address] Phys: Abdi Mccormick Acct: [id number] Di s Date: Status: REG ER PHONE #: Exam Date: 12/03/2019 5115 FAX #: Reason: RLQ pain EXAMS: CPT CODE: [id number] CT ABD PELVIS W/CONT 02579 EXAM: CT ABDOMEN AND PELV IS WITH CONTRAST DATE: 12/03/2019 1:49 PM : 1970; Age: 49 y ears y/o Female INDICATION: Right hip pain, RLQ pain COMPARISON: None. TECHNIQUE: Volumetric CT of the abdomen and pe lvis is acquired following the intravenous administration of contrast. Axi al, coronal and sagittal images are provided. IV contrast: 100 mL I sovue Enteric contrast: None. DLP: 700 mGy-cm CT imag ing performed at this location utilizes radiation dose optimization techni ques which include one or more of the following: -Automated exposure contr ol -Adjustment of the mA and/or kV according to patient size -Use of iterative reconstruction technique FINDINGS: Lower thorax: Clear. Liver: Normal. Gallbladder: Surgica lly absent. Adrenals: Normal. Kidneys and ureters: N ormal. Spleen: Normal. Pancreas: Normal. Visualized Gastrointestinal tract: Stomach is normal. No significant small bowel dilatation. No obstruction. Normal appendix. Occasional col onic diverticula are seen. Peritoneum, mesentery and retroperitone um: No free air, lymphadenopathy, ascites or loculated fluid. Reproductive organs: Uterus is retroverted. No adnexal abnormalities. PAGE 1 Signed Report (CONTINUED) Name: HEAVEN MAYA [facility] [place] : 9[birth year] Age/S: 49 / F [address] [place] [address] Unit #: [id number] Loc: [place] [address] Phys: Vickie Mccormick Acct: [id number] Dis Date: Status: REG ER PHONE #: [phone] Exam Date: 12/03/2019 4276 FAX #: [phone] Reason: RLQ pain EXAMS: CPT CODE: [id number] CT ABD PELVIS W/CONT 74440 <Continued> Bladder: Decompressed or not fully distended. Soft tissues: Small fat- containing umbilical hernia. Bones: No acute abnormality. Age- related degenerative findings. IMPRESSION: 1. No acute intra-abdominal process. 2. Colonic diverticulosis without acute diverticulitis. SL: [id number] at 1513 Reported and signed by: Pako Graf D.O. CC: Vickie JOSE Technologist:Trinidad Farrell RT(R)(CT) CTDI: DLP: Trnscb Date/Time: 12/03/2019 (1512) [email or web address] Orig Print D/T: S: 12/03/2019 (1515) PAGE 2 Signed Report CBC W/AUTO [id number] 15:11:00* Test Item Value Reference Range Interpretation Comments WHITE BLOOD CELL (test code = WBC) 8.12 x10 3/uL 4.5-11.0 N RED BLOOD CELL (test code = RBC) 4.79 x10 6/uL 3.54-5.02 N HEMOGLOBIN (test code = HGB) 13.4 g/dL 11.0-15.0 N HEMATOCRIT (test code = HCT) 41.6 % 33.0-45.0 N MEAN CELL VOLUME (test code = MCV) 86.8 fL 81.0-99.0 N MEAN CELL HGB (test code = MCH) 28.0 pg 27.0-33.0 N MEAN CELL HGB CONCETRATION (test code = MCHC) 32.2 g/dL 33.0-37. 0 L RED CELL DISTRIBUTION WIDTH CV (test code = RDW) 13.6 % 11.5- 14.5 N RED CELL DISTRIBUTION WIDTH SD (test code = RDW-SD) 42.8 fL 37 .0-54.0 N PLATELET COUNT (test code = PLT) 271 x10 3/uL 150-400 N MEAN PLATELET VOLUME (test code = MPV) 11.2 fL 7.0-9.0 H NEUTROPHIL % (test code = NT%) 68.9 % 56.0-77.0 N IMMATURE GRANULOCYTE % (test code = IG%) 0.6 % 0.0-2.0 N LYMPHOCYTE % (test code = LY%) 22.3 % 14.0-32.0 N MONOCYTE % (test code = MO%) 5.5 % 4.8-9.0 N EOSINOPHIL % (test code = EO%) 2.2 % 0.3-3.7 N BASOPHIL % (test code = BA%) 0.5 % 0.0-2.0 N NUCLEATED RBC % (test code = NRBC%) 0.0 % 0-0 N NEUTROPHIL # (test code = NT#) 5.59 x10 3/uL 2.0-7.6 N IMMATURE GRANULOCYTE # (test code = IG#) 0.05 x10 3/uL 0.00-0.03 H LYMPHOCYTE # (test code = LY#) 1.81 x10 3/uL 1.0-3.8 N MONOCYTE # (test code = MO#) 0.45 x10 3/uL 0.1-0.8 N EOSINOPHIL # (test code = EO#) 0.18 x10 3/uL 0.0-0.2 N BASOPHIL # (test code = BA#) 0.04 x10 3/uL 0.0-0.2 N NUCLEATED RBC # (test code = NRBC#) 0.00 x10 3/uL 0.0-0.1 N MANUAL DIFF REQUIRED (test code = MDIFF) NO UR HCG [id number] 14:17:00* Test Item Value Reference Range Interpretation Comments UR HCG QUAL (test code = HCGQLU) NEGATIVE NEGATIVE URINALYSIS [id number] 14:17:00* Test Item Value Reference Range Interpretation Comments UA COLOR (test code = COLU) YELLOW YEL/STRAW UA APPEARANCE (test code = APPU) SL CLOUDY CLEAR UA GLUCOSE DIPSTICK (test code = DGLUU) NEGATIVE NEGATIVE UA BILIRUBIN DIPSTICK (test code = BILU) NEGATIVE NEGATIVE UA KETONE DIPSTICK (test code = KETU) NEGATIVE NEGATIVE UA SPECIFIC GRAVITY (test code = SGU) 1.030 1.005-1.030 N UA BLOOD DIPSTICK (test code = CROW) NEGATIVE NEGATIVE UA PH DIPSTICK (test code = YVONNE) 5.0 5.0-7.0 N UA PROTEIN DIPSTICK (test code = PROU) NEGATIVE NEGATIVE UA UROBILINIOGEN DIPSTICK (test code = URO) 4.0 mg/dL 0.2-1.0 A UA NITRITE DIPSTICK (test code = KIMBERLY) NEGATIVE NEGATIVE UA LEUKOCYTE ESTERASE DIPSTICK (test code = LEUU) NEGATIVE NEGA TIVE UA RBC (test code = RBCU) 4-10 RBC/HPF 0-3 UA WBC NO REFLEX (test code = WBCUCL) 0-3 WBC/HPF 0-3 UA BACTERIA (test code = BACU) TRACE /HPF NONE SEEN UA SQUAMOUS CELLS (test code = SQU) 6-10 /HPF NONE SEEN A UA MUCUS (test code = MUCU) 3+ /LPF NONE SEEN A - US PELVIS [id number] 13:27:00 Name: HEAVEN FREEDMAN [facility] : 1970 Age/S: 49 / F [address] [place] [address] Unit #: [id number] Loc: [place] [address] Phys: Vickie Mccormick Acct: [id number] Dis Date: Status: DEP ER PHONE #: [phone] Exam Date: 12/03/2019 1312 FAX #: [phone] Reason: R adnexal pain EXAMS: CPT CODE: [id number] US PELVIS COMPLETE 32765 Exam: Pelvic ultrasound. Exam date: December 03, 2019. CLINICAL HISTORY: Right adnexal pain x6 months. COMPARISON: None. Real-time transabdominal and transvaginal imaging of the pelvis with spectral Doppler analysis and color-flow imaging demonstrates a 9.6 x 5.7 x 6.6 cm uterus. The endometrium measures 1.1 cm There is mild inhomogeneity to the uterine echotexture with no discernible fibroids or adenomas identified. The right ovary measures 2.9 x 1.3 x 1.3 cm and has a normal sonographic appearance. Blood flow is identified in the ovary.. The left ovary measures 1.7 x 2.0 x 1.4 cm and has a normal sonographic appearance. Blood flow is identified within the ovary.. No significant free fluid or adnexal masses are identified. IMPRESSION: No significant abnormalities on the images provided. at 1327 Reported and signed by: Laura Warner M.D. CC: Vickie JOSE Dominic hnologist: Tami Enamorado RDMS(Rosa M)(BR) Trnscb Date/Ti me: 12/03/2019 (1327) t.CER Orig Print D/T: S: 2019 (8137) Probe: PAGE 1 Lauren d Report - US TRANSVAGINAL NON [id number] 13:27:00 Name: HEAVEN FREEDMAN [facility] : 1970 Age/S: 49 / F [address] [place] [address] Unit #: [id number] Loc: [place] [address] Phys: Vickie Mccormick Acct: [id number] Dis Date: Status: DEP ER PHONE #: [phone] Exam Date: 12/03/2019 1313 FAX #: [phone] Reason: see US Pelvic Non OB Complete EXAMS: CPT CODE: [id number] [place] [address] Exam: Pelvic ultrasound. Exam date: December 03, 2019. CLINICAL HISTORY: Right adnexal pain x6 months. COMPARISON: None. Real-time transabdominal and transvaginal imaging of the pelvis with spectral Doppler analysis and color-flow imaging demonstrates a 9.6 x 5.7 x 6.6 cm uterus. The endometrium measures 1.1 cm There is mild inhomogeneity to the uterine echotexture with no discernible fibroids or adenomas identified. The right ovary measures 2.9 x 1.3 x 1.3 cm and has a normal sonographic appearance. Blood flow is identified in the ovary.. The left ovary measures 1.7 x 2.0 x 1.4 cm and has a normal sonographic appearance. Blood flow is identified within the ovary.. No significant free fluid or adnexal masses are identified. IMPRESSION: No significant abnormalities on the images provided. at 1327 Reported and signed by: Laura Warner M.D. CC: Vickie JOSE Technologist: Tami Enamorado RDMS(Rosa M)(BR) Trnscb Date/Time: 12/03/2019 (2077) t.CER Orig Print D/T: S: 12/03/2019 (8180) Probe: [id number] PAGE 1 Signed Report - DUP AB/PEL/SC/[id number] 13:27:00 Name: HEAVEN FREEDMAN [facility] : 1970 Age/S: 49 / F [address] [place] [address] Unit #: [id number] Loc: [place] [address] Phys: Vickie Mccormick Acct: [id number] Dis Date: Status: DEP ER PHONE #: [phone] Exam Date: 12/03/2019 1313 FAX #: [phone] Reason: see US Pelvic Non OB Complete EXAMS: CPT CODE: [id number] DUP AB/PEL/SC/LTD 27861 Exam: Pelvic ultrasound. Exam date: December 03, 2019. CLINICAL HISTORY: Right adnexal pain x6 months. COMPARISON: None. Real-time transabdominal and transvaginal imaging of the pelvis with spectral Doppler analysis and color-flow imaging demonstrates a 9.6 x 5.7 x 6.6 cm uterus. The endometrium measures 1.1 cm There is mild inhomogeneity to the uterine echotexture with no discernible fibroids or adenomas identified. The right ovary measures 2.9 x 1.3 x 1.3 cm and has a normal sonographic appearance. Blood flow is identified in the ovary.. The left ovary measures 1.7 x 2.0 x 1.4 cm and has a normal sonographic appearance. Blood flow is identified within the ovary.. No significant free fluid or adnexal masses are identified. IMPRESSION: No significant abnormalities on the images provided. at 1327 Reported and signed by: Laura Warner M.D. CC: Vickie JOSE Technologist: Tami Enamorado RDMS(Rosa M)(BR) Trncob Date/Time: 12/03/2019 (1327) tMAYRA Orig Print D/T: S: 12/03/2019 (5379) Probe: PAGE 1 Signed Report - US TRANSVAGINAL NON [id number] 13:27:00 Name: ERIC LOWELESLUCIARosa M Feldman [facility] : 1970 Age/S: 49 / F [address] [place], [place] [address] Unit #: [id number] Loc: [place] [address] Phys: Vickie Mccormick Acct: [id number] Dis Date: Status: PRE ER PHONE #: [phone] Exam Date: 12/03/2019 1313 FAX #: [phone] Reason: see US Pelvic Non OB Complete EXAMS: CPT CODE: [id number] [place] [address] Exam: Pelvic ultrasound. Exam date: December 03, 2019. CLINICAL HISTORY: Right adnexal pain x6 months. COMPARISON: None. Real-time transabdominal and transvaginal imaging of the pelvis with spectral Doppler analysis and color-flow imaging demonstrates a 9.6 x 5.7 x 6.6 cm uterus. The endometrium measures 1.1 cm There is mild inhomogeneity to the uterine echotexture with no discernible fibroids or adenomas identified. The right ovary measures 2.9 x 1.3 x 1.3 cm and has a normal sonographic appearance. Blood flow is identified in the ovary.. The left ovary measures 1.7 x 2.0 x 1.4 cm and has a normal sonographic appearance. Blood flow is identified within the ovary.. No significant free fluid or adnexal masses are identified. IMPRESSION: No significant abnormalities on the images provided. at 1327 Reported and signed by: Laura Warner M.D. CC: Vickie JOSE Technologist: Tami Enamorado RDMS(Rosa M)(BR) Trnscb Date/Time: 12/03/2019 (1327) t.CER Orig Print D/T: S: 12/03/2019 (1330) Probe: [id number] PAGE 1 Signed Report - US PELVIS [id number] 13:27:00 Name: HEAVEN FREEDMAN [facility] : 1970 Age/S: 49 / F [address] [place] [address] Unit #: [id number] Loc: [place] [address] Phys: Vickie Mccormick Acct: [id number] Dis Date: Status: PRE ER PHONE #: [phone] Exam Date: 12/03/2019 1312 FAX #: [phone] Reason: R adnexal pain EXAMS: CPT CODE: [id number] US PELVIS COMPLETE 75698 Exam: Pelvic ultrasound. Exam date: December 03, 2019. CLINICAL HISTORY: Right adnexal pain x6 months. COMPARISON: None. Real-time transabdominal and transvaginal imaging of the pelvis with spectral Doppler analysis and color-flow imaging demonstrates a 9.6 x 5.7 x 6.6 cm uterus. The endometrium measures 1.1 cm There is mild inhomogeneity to the uterine echotexture with no discernible fibroids or adenomas identified. The right ovary measures 2.9 x 1.3 x 1.3 cm and has a normal sonographic appearance. Blood flow is identified in the ovary.. The left ovary measures 1.7 x 2.0 x 1.4 cm and has a normal sonographic appearance. Blood flow is identified within the ovary.. No significant free fluid or adnexal masses are identified. IMPRESSION: No significant abnormalities on the images provided. at 1327 Reported and signed by: aLura Warner M.D. CC: Vickie JOSE Technologist: Tami Enamorado RDMS(Rosa M)(BR) Trnscb Date/Time: 12/03/2019 (1327) Elisa Orig Print D/T: S: 12/03/2019 (9305) Probe: PAGE 1 Signed Report - DUP AB/PEL/SC/[id number] 13:27:00 Name: HEAVEN FREEDMAN [facility] [place] : 1970 Age/S: 49 / F [address] [place] [address] Unit #: [id number] Loc: [place] [address] Phys: Vickie Mccormick Acct: [id number] Dis Date: Status: PRE ER PHONE #: [phone] Exam Date: 12/03/2019 1313 FAX #: [phone] Reason: see US Pelvic Non OB Complete EXAMS: CPT CODE: [id number] DUP AB/PEL/SC/LTD 47611 Exam: Pelvic ultrasound. Exam date: December 03, 2019. CLINICAL HISTORY: Right adnexal pain x6 months. COMPARISON: None. Real-time transabdominal and transvaginal imaging of the pelvis with spectral Doppler analysis and color-flow imaging demonstrates a 9.6 x 5.7 x 6.6 cm uterus. The endometrium measures 1.1 cm There is mild inhomogeneity to the uterine echotexture with no discernible fibroids or adenomas identified. The right ovary measures 2.9 x 1.3 x 1.3 cm and has a normal sonographic appearance. Blood flow is identified in the ovary.. The left ovary measures 1.7 x 2.0 x 1.4 cm and has a normal sonographic appearance. Blood flow is identified within the ovary.. No significant free fluid or adnexal masses are identified. IMPRESSION: No significant abnormalities on the images provided. at 1327 Reported and signed by: Laura Warner M.D. CC: Vickie JOSE Technologist: Tami Enamorado RDMS(Rosa M)(BR) Trnscb Date/Time: 12/03/2019 (7446) Elisa Orig Print D/T: S: 12/03/2019 (4858) Probe: PAGE 1 Signed Report BASIC METABOLIC [id number] 22:07:00* Test Item Value Reference Range Interpretation Comments SODIUM (test code = NA) 137 mEq/L 134-147 N POTASSIUM (test code = K) 4.0 mEq/L 3.4-5.0 N CHLORIDE (test code = CL) 105 mEq/L 100-108 N CARBON DIOXIDE (test code = CO2) 25 mEq/L 21-33 N ANION GAP (test code = GAP) 11 0-20 N GLUCOSE (test code = GLU) 106 mg/dL 70-110 N BLOOD UREA NITROGEN (test code = BUN) 9 mg/dL 7-18 N GLOMERULAR FILTRATION RATE (test code = GFR) 76.9 95-105 L Units of measure = ml/min/1.73 m2 CREATININE (test code = CREAT) 0.8 mg/dL 0.6-1.3 N CALCIUM (test code = CA) 8.6 mg/dL 8.0-10.5 N HEPATIC FUNCTION [id number] 22:07:00* Test Item Value Reference Range Interpretation Comments TOTAL PROTEIN (test code = PROT) 8.1 g/dL 6.4-8.2 N ALBUMIN (test code = ALB) 3.60 g/dL 3.4-5.0 N BILIRUBIN TOTAL (test code = BILT) 0.7 MG/DL <1.5 N BILIRUBIN DIRECT (test code = BILD) 0.20 MG/DL 0.0-0.30 N BILIRUBIN INDIRECT (test code = BILIND) 0.50 MG/DL SGOT/AST (test code = AST) 20 IUnit/L 15-37 N SGPT/ALT (test code = ALT) 36 IUnit/L 15-65 N ALKALINE PHOSPHATASE TOTAL (test code = ALKP) 104 IUnit/L 20-125 N [id number] 22:07:00* Test Item Value Reference Range Interpretation Comments LIPASE (test code = LIP) 142 IUnit/L 73-393 N BASIC METABOLIC [id number] 22:02:00* Test Item Value Reference Range Interpretation Comments SODIUM (test code = NA) 137 mEq/L 134-147 N POTASSIUM (test code = K) 4.0 mEq/L 3.4-5.0 N CHLORIDE (test code = CL) 105 mEq/L 100-108 N CARBON DIOXIDE (test code = CO2) 25 mEq/L 21-33 N ANION GAP (test code = GAP) 11 0-20 N GLUCOSE (test code = GLU) 106 mg/dL 70-110 N BLOOD UREA NITROGEN (test code = BUN) 9 mg/dL 7-18 N GLOMERULAR FILTRATION RATE (test code = GFR) 95-105 CREATININE (test code = CREAT) mg/dL 0.6-1.3 CALCIUM (test code = CA) 8.6 mg/dL 8.0-10.5 N HEPATIC FUNCTION [id number] 22:02:00* Test Item Value Reference Range Interpretation Comments TOTAL PROTEIN (test code = PROT) g/dL 6.4-8.2 ALBUMIN (test code = ALB) g/dL 3.4-5.0 BILIRUBIN TOTAL (test code = BILT) MG/DL <1.5 BILIRUBIN DIRECT (test code = BILD) MG/DL 0.0-0.30 SGOT/AST (test code = AST) IUnit/L 15-37 SGPT/ALT (test code = ALT) IUnit/L 15-65 ALKALINE PHOSPHATASE TOTAL (test code = ALKP) IUnit/L 20-125 [id number] 22:02:00* Test Item Value Reference Range Interpretation Comments LIPASE (test code = LIP) 142 IUnit/L 73-393 N CBC W/AUTO [id number] 21:55:00* Test Item Value Reference Range Interpretation Comments WHITE BLOOD CELL (test code = WBC) 8.23 x10 3/uL 4.5-11.0 N RED BLOOD CELL (test code = RBC) 4.44 x10 6/uL 3.54-5.02 N HEMOGLOBIN (test code = HGB) 12.6 g/dL 11.0-15.0 N HEMATOCRIT (test code = HCT) 39.1 % 33.0-45.0 N MEAN CELL VOLUME (test code = MCV) 88.1 fL 81.0-99.0 N MEAN CELL HGB (test code = MCH) 28.4 pg 27.0-33.0 N MEAN CELL HGB CONCETRATION (test code = MCHC) 32.2 g/dL 33.0-37. 0 L RED CELL DISTRIBUTION WIDTH CV (test code = RDW) 14.2 % 11.5- 14.5 N RED CELL DISTRIBUTION WIDTH SD (test code = RDW-SD) 46.3 fL 37 .0-54.0 N PLATELET COUNT (test code = PLT) 221 x10 3/uL 150-400 N MEAN PLATELET VOLUME (test code = MPV) 11.2 fL 7.0-9.0 H NEUTROPHIL % (test code = NT%) 79.6 % 56.0-77.0 H IMMATURE GRANULOCYTE % (test code = IG%) 0.4 % 0.0-2.0 N LYMPHOCYTE % (test code = LY%) 10.8 % 14.0-32.0 L MONOCYTE % (test code = MO%) 6.2 % 4.8-9.0 N EOSINOPHIL % (test code = EO%) 2.6 % 0.3-3.7 N BASOPHIL % (test code = BA%) 0.4 % 0.0-2.0 N NUCLEATED RBC % (test code = NRBC%) 0.0 % 0-0 N NEUTROPHIL # (test code = NT#) 6.56 x10 3/uL 2.0-7.6 N IMMATURE GRANULOCYTE # (test code = IG#) 0.03 x10 3/uL 0.00-0.03 N LYMPHOCYTE # (test code = LY#) 0.89 x10 3/uL 1.0-3.8 L MONOCYTE # (test code = MO#) 0.51 x10 3/uL 0.1-0.8 N EOSINOPHIL # (test code = EO#) 0.21 x10 3/uL 0.0-0.2 H BASOPHIL # (test code = BA#) 0.03 x10 3/uL 0.0-0.2 N NUCLEATED RBC # (test code = NRBC#) 0.00 x10 3/uL 0.0-0.1 N MANUAL DIFF REQUIRED (test code = MDIFF) NO - XR CHEST 2 [id number] 21:53:00 FAX: Leland Jackson HUMID SYSTEM OPERATOR [phone] [place]: St: DEP Name: Fermin CURRYHAEVEN Feldman [facility] : [birth year] Age/S: 49/F [address] [place] [address] Unit #: [id number] Loc: [facility] [place] [address] Phys: Leland Jackson NP Acct: [id number] Dis Date: Status: DEP ER PHONE #: [phone] Exam Date: 09/11/20192145 FAX #: [phone] Reason: R sided chest pain EXAMS: CPT CODE: [id number] XR CHEST 2 V 42808 XR CHEST 2 VIEWS HI STORY: R sided chest pain COMPARISON: None. FINDINGS : The lungs are clear. The heart and vascular markings are normal. No pleu ral abnormality. The bones are intact. IMPRESSION: No active pr ocess. SL: LS-H at 2152 Repor giana and signed by: Alcides Gonzalez M.D. CC: Leland Jackson NP Technologist: RT Nanci(Kuldeep)Kuldeep Trnscrd Date/Time/By: 09/11/2019 (2152) : By: patti [email or web address] Orig Print D/T: S: 09/11/2019 (2155) P AGE 3 Signed Report - XR CHEST 2 [id number] 21:53:00 FAX: Leland Jackson NP [phone] [place]: St: REG Name: HEAVEN MAYA [facility] [place] : [birth year] Age/S: 49/F [address] [place] [address] Unit #: [id number] Loc: [place] [address] Phys: Leland Jackson HUMID SYSTEM OPERATOR Acct: [id number] Dis Date: Status: REG ER PHONE #: [phone] Exam Date: 09/11/20192145 FAX #: [phone] Reason: R sided chest pain EXAMS: CPT CODE: [id number] XR CHEST 2 V 12027 XR CHEST 2 VIEWS HI STORY: R sided chest pain COMPARISON: None. FINDINGS : The lungs are clear. The heart and vascular markings are normal. No pleu ral abnormality. The bones are intact. IMPRESSION: No active pr ocess. SL: LS-H at 2153 Repor giana and signed by: Alcides Gonzalez M.D. CC: Leland Jackson NP Technologist: RT Nanci(R)R Trnscrd Date/Time/By: 09/11/2019 (2152) : By: patti [email or web address] Orig Print D/T: S: 09/11/2019 (2155) P AGE 3 Signed Report UA RFLX MICR CULT IF [id number] 21:40:00* Test Item Value Reference Range Interpretation Comments UA COLOR (test code = COLU) YELLOW YEL/STRAW UA APPEARANCE (test code = APPU) CLOUDY CLEAR A UA GLUCOSE DIPSTICK (test code = DGLUU) NEGATIVE NEGATIVE UA BILIRUBIN DIPSTICK (test code = BILU) NEGATIVE NEGATIVE UA KETONE DIPSTICK (test code = KETU) NEGATIVE NEGATIVE UA SPECIFIC GRAVITY (test code = SGU) 1.023 1.005-1.030 N UA BLOOD DIPSTICK (test code = CROW) 1+ NEGATIVE A UA PH DIPSTICK (test code = YVONNE) 5.0 5.0-7.0 N UA PROTEIN DIPSTICK (test code = PROU) NEGATIVE NEGATIVE UA UROBILINIOGEN DIPSTICK (test code = URO) 4.0 mg/dL 0.2-1.0 A UA NITRITE DIPSTICK (test code = KIMBERLY) NEGATIVE NEGATIVE UA LEUKOCYTE ESTERASE DIPSTICK (test code = LEUU) 3+ NEGA TIVE A UA WBC (test code = WBCU) 21-50 WBC/HPF 0-3 A UA RBC (test code = RBCU) 11-20 RBC/HPF 0-3 UA WBC NO REFLEX (test code = WBCUCL) 21-50 WBC/HPF 0-3 A UA BACTERIA (test code = BACU) TRACE /HPF NONE SEEN UA SQUAMOUS CELLS (test code = SQU) 36-50 /HPF NONE SEEN A UA MUCUS (test code = MUCU) 2+ /LPF NONE SEEN A Indication for culture: Flank PainSpecimen Description: CLEAN CATCH- XR CHEST 1 [id number] 23:51:00 FAX: Saavge Shea MD [place]: St: REG Name: HEAVEN ROSS [facility] : [birth year] Age/S: 49/F [address] [facility] Unit #: [id number] Loc: [place] [address] Phys: Savage Shea MD Acct: [id number] Dis Date: Status: [facility] ER PHONE #: [phone] Exam Date: 08/03/2019 2341 FAX #: [phone] Reason: chest pain EXAMS: CPT CODE: [id number] XR CHEST 1 V 41012 DICTATION LOCATION: H48 HISTORY: Female, 49 years of age with chest pain EXAM: CHEST X-RAY, ONE VIEW COMPARISON: 10/03/2017 COMMENT: Frontal view of the chest is provided. No focal infiltrate, consolidation, mass lesion, or effusion is seen. Cardiac silhouette is within normal correia its. No acute bony abnormalities. IMPRESSION: No acute disease. at 2351 Reported and signed by: Zaria Mariano MD CC: Savage Shea MD Technologist: Evelia Torres Trnscrd Date/Time/By: 0 08/03/2019 (4546) : By: Radha Orig Print D/T: S: 08/03/2019 (4659) PAGE 1 Signed Report [id number] 23:20:00* Test Item Value Reference Range Interpretation Comments MAGNESIUM (test code = MAG) 2.3 mg/dL 1.8-2.4 N TSH REFLEX TO [id number] 23:20:00* Test Item Value Reference Range Interpretation Comments TSH REFLEX TO FT4 (test code = TSHREFLEX) 1.7 0.4-5.5 N [id number] 23:20:00* Test Item Value Reference Range Interpretation Comments TROPONIN-I (test code = TROPI) <0.015 ng/mL 0-0.045 N [id number] 23:05:00* Test Item Value Reference Range Interpretation Comments MAGNESIUM (test code = MAG) 2.3 mg/dL 1.8-2.4 N TSH REFLEX TO [id number] 23:05:00* Test Item Value Reference Range Interpretation Comments TSH REFLEX TO FT4 (test code = TSHREFLEX) 0.4-5.5 [id number] 23:05:00* Test Item Value Reference Range Interpretation Comments TROPONIN-I (test code = TROPI) ng/mL 0-0.045 HEPATIC FUNCTION [id number] 23:05:00* Test Item Value Reference Range Interpretation Comments TOTAL PROTEIN (test code = PROT) 7.9 gram/dL 6.4-8.2 N ALBUMIN (test code = ALB) 4.0 g/dL 3.4-5.0 N GLOBULIN (test code = GLOB) 3.9 gram/dL 2.7-4.2 N ALBUMIN/GLOBULIN RATIO (test code = A/G) 1.0 0.75-1.50 N BILIRUBIN TOTAL (test code = BILT) 0.40 mg/dL 0.0-1.0 N BILIRUBIN DIRECT (test code = BILD) 0.14 mg/dL 0.0-0.20 N SGOT/AST (test code = AST) 21 IUnit/L 15-37 N SGPT/ALT (test code = ALT) 43 IUnit/L 12-78 N ALKALINE PHOSPHATASE TOTAL (test code = ALKP) 121 IUnit/L 45-117 H Note change in reference range due to change in reagent. BASIC METABOLIC [id number] 22:50:00* Test Item Value Reference Range Interpretation Comments SODIUM (test code = NA) 141 mmol/L 136-145 N POTASSIUM (test code = K) 3.8 mmol/L 3.5-5.1 N CHLORIDE (test code = CL) 108.0 mmol/L 98-107 H CARBON DIOXIDE (test code = CO2) 27.0 mmol/L 21-32 N ANION GAP (test code = GAP) 9.8 10-20 L GLUCOSE (test code = GLU) 101 mg/dL 74-106 N BLOOD UREA NITROGEN (test code = BUN) 11 mg/dL 7-18 N GLOMERULAR FILTRATION RATE (test code = GFR) > 60 mL/min >=60 Estimated GFR by using Modified MDRD formula.Chronic kidney disease is defined as either kidney damageor GFR <60 mL/min/1.73 m2 for >3 months. CREATININE (test code = CREAT) 0.90 mg/dL 0.55-1.02 N Note change in reference range due to change in reagent. BUN/CREATININE RATIO (test code = BUN/CREA) 12.4 10-20 N CALCIUM (test code = CA) 8.6 mg/dL 8.5-10.1 N HCG SERUM [id number] 22:50:00* Test Item Value Reference Range Interpretation Comments HCG SERUM QUAL (test code = HCGQL) NEGATIVE NEGATIVE This HCGQL test is NOT applicable for MALE patients.Check with nurse about probable order error.If Tumor Marker Test needed, nurse should order test "HCGTU"(Test #550.41315) BASIC METABOLIC [id number] 22:46:00* Test Item Value Reference Range Interpretation Comments SODIUM (test code = NA) 141 mmol/L 136-145 N POTASSIUM (test code = K) 3.8 mmol/L 3.5-5.1 N CHLORIDE (test code = CL) 108.0 mmol/L 98-107 H CARBON DIOXIDE (test code = CO2) mmol/L 21-32 ANION GAP (test code = GAP) 10-20 GLUCOSE (test code = GLU) mg/dL 74-106 BLOOD UREA NITROGEN (test code = BUN) mg/dL 7-18 GLOMERULAR FILTRATION RATE (test code = GFR) mL/min >=60 CREATININE (test code = CREAT) mg/dL 0.55-1.02 BUN/CREATININE RATIO (test code = BUN/CREA) 10-20 CALCIUM (test code = CA) 8.6 mg/dL 8.5-10.1 N HCG SERUM [id number] 22:46:00* Test Item Value Reference Range Interpretation Comments HCG SERUM QUAL (test code = HCGQL) NEGATIVE NEGATIVE This HCGQL test is NOT applicable for MALE patients.Check with nurse about probable order error.If Tumor Marker Test needed, nurse should order test "HCGTU"(Test #550.38888) BASIC METABOLIC [id number] 22:44:00* Test Item Value Reference Range Interpretation Comments SODIUM (test code = NA) mmol/L 136-145 POTASSIUM (test code = K) mmol/L 3.5-5.1 CHLORIDE (test code = CL) mmol/L 98-107 CARBON DIOXIDE (test code = CO2) mmol/L 21-32 ANION GAP (test code = GAP) 10-20 GLUCOSE (test code = GLU) mg/dL 74-106 BLOOD UREA NITROGEN (test code = BUN) mg/dL 7-18 GLOMERULAR FILTRATION RATE (test code = GFR) mL/min >=60 CREATININE (test code = CREAT) mg/dL 0.55-1.02 BUN/CREATININE RATIO (test code = BUN/CREA) 10-20 CALCIUM (test code = CA) mg/dL 8.5-10.1 HCG SERUM [id number] 22:44:00* Test Item Value Reference Range Interpretation Comments HCG SERUM QUAL (test code = HCGQL) NEGATIVE NEGATIVE This HCGQL test is NOT applicable for MALE patients.Check with nurse about probable order error.If Tumor Marker Test needed, nurse should order test "HCGTU"(Test #550.12760) CBC W/AUTO [id number] 22:30:00* Test Item Value Reference Range Interpretation Comments WHITE BLOOD CELL (test code = WBC) 5.8 K/mm3 4.5-12.5 N RED BLOOD CELL (test code = RBC) 4.86 mill/mm3 3.7-5.2 N HEMOGLOBIN (test code = HGB) 13.6 gram/dL 11.5-15.5 N HEMATOCRIT (test code = HCT) 41.5 % 36.0-46.0 N MEAN CELL VOLUME (test code = MCV) 85.4 fL 80-98 N MEAN CELL HGB (test code = MCH) 28.0 picogram 27.0-33.0 N MEAN CELL HGB CONCETRATION (test code = MCHC) 32.8 gram/dL 33.0-36. 0 L RED CELL DISTRIBUTION WIDTH (test code = RDW) 13.2 % 11.6-16. 2 N RED CELL DISTRIBUTION WIDTH SD (test code = RDW-SD) 41.0 fL 37 .0-51.0 N PLATELET COUNT (test code = PLT) 255 K/mm3 150-450 N MEAN PLATELET VOLUME (test code = MPV) 11.6 fL 6.7-11.0 H NEUTROPHIL % (test code = NT%) 60.7 % 39.0-69.0 N IMMATURE GRANULOCYTE % (test code = IG%) 0.2 % 0.0-5.0 N LYMPHOCYTE % (test code = LY%) 28.0 % 25.0-55.0 N MONOCYTE % (test code = MO%) 7.8 % 0.0-10.0 N EOSINOPHIL % (test code = EO%) 2.8 % 0.0-5.0 N BASOPHIL % (test code = BA%) 0.5 % 0.0-1.0 N NUCLEATED RBC % (test code = NRBC%) 0.0 % 0-0 N NEUTROPHIL # (test code = NT#) 3.50 K/mm3 1.8-7.7 N IMMATURE GRANULOCYTE # (test code = IG#) 0.01 x10 3/uL 0-0.03 N LYMPHOCYTE # (test code = LY#) 1.61 K/mm3 1.0-5.0 N MONOCYTE # (test code = MO#) 0.45 K/mm3 0-0.8 N EOSINOPHIL # (test code = EO#) 0.16 K/mm3 0.0-0.5 N BASOPHIL # (test code = BA#) 0.03 K/mm3 0.0-0.2 N NUCLEATED RBC # (test code = NRBC#) 0.00 K/mm3 0.0-0.1 N MANUAL DIFF REQUIRED (test code = MDIFF) NO CBC W/AUTO [id number] 22:29:00* Test Item Value Reference Range Interpretation Comments WHITE BLOOD CELL (test code = WBC) K/mm3 4.5-12.5 RED BLOOD CELL (test code = RBC) mill/mm3 3.7-5.2 HEMOGLOBIN (test code = HGB) 13.6 gram/dL 11.5-15.5 N HEMATOCRIT (test code = HCT) 41.5 % 36.0-46.0 N MEAN CELL VOLUME (test code = MCV) fL 80-98 MEAN CELL HGB (test code = MCH) picogram 27.0-33.0 MEAN CELL HGB CONCETRATION (test code = MCHC) gram/dL 33.0-36. 0 RED CELL DISTRIBUTION WIDTH (test code = RDW) % 11.6-16. 2 RED CELL DISTRIBUTION WIDTH SD (test code = RDW-SD) fL 37 .0-51.0 PLATELET COUNT (test code = PLT) K/mm3 150-450 MEAN PLATELET VOLUME (test code = MPV) fL 6.7-11.0 NEUTROPHIL % (test code = NT%) % 39.0-69.0 IMMATURE GRANULOCYTE % (test code = IG%) % 0.0-5.0 LYMPHOCYTE % (test code = LY%) % 25.0-55.0 MONOCYTE % (test code = MO%) % 0.0-10.0 EOSINOPHIL % (test code = EO%) % 0.0-5.0 BASOPHIL % (test code = BA%) % 0.0-1.0 NEUTROPHIL # (test code = NT#) K/mm3 1.8-7.7 LYMPHOCYTE # (test code = LY#) K/mm3 1.0-5.0 MONOCYTE # (test code = MO#) K/mm3 0-0.8 EOSINOPHIL # (test code = EO#) K/mm3 0.0-0.5 BASOPHIL # (test code = BA#) K/mm3 0.0-0.2 - XR CHEST 1 [id number] 01:53:00 FAX: Moiz Freedman MD [phone] [place]: St: [facility] FAX: Y José Miguel Alcanatra DO [phone] Name: HEAVEN FREEDMAN [facility] : 1970 Age/S: 48/F [address] [facility] Unit #: [id number] Loc: [place] [address] Phys: Moiz Freedman MD Acct: [id number] Dis Date: Status: DEP ER PHONE #: [phone] Exam Date: 01/03/2019 0140 FAX #: [phone] Reason: CHEST PAIN EXAMS: CPT CODE: [id number] XR CHEST 1 V 73022 AFTER HOURS SERVICE ON: 01/03/2019 1:52 AM AP Portable Chest Location Code M12 HISTORY: CHEST PAIN FINDINGS: There are no infiltrates. There are no pleural effusions. There is no pneumothorax. Cardiac silhouette and mediastinum appear within normal limits. IMPRESSION: No active pulmonary findings. at 0153 Reported and signed by: Lobito Rain M.D. CC: Moiz Freedman MD; José Miguel Alcantara DO Technologist: Evelia Torres [facility] Date/Time/By: 01/03/2019 (015) : By: [email or web address] Orig Print D/T: S: 01/03/2019 (9635) PAGE 1 Signed Report - XR CHEST 1 [id number] 01:53:00 FAX: Moiz Freedman MD [phone] [place]: St: REG FAX: Y José Miguel Alcantara DO [phone] Name: HEAVEN FREEDMAN [facility] : 1970 Age/S: 48/F [address] [facility] Unit #: [id number] Loc: [place] [address] Phys: Moiz Freedman MD Acct: [id number] Dis Date: Status: REG ER PHONE #: [phone] Exam Date: 01/03/2019 0140 FAX #: [phone] Reason: CHEST PAIN EXAMS: CPT CODE: [id number] XR CHEST 1 V 81307 AFTER HOURS SERVICE ON: 01/03/2019 1:52 AM AP Portable Chest Location Code M12 HISTORY: CHEST PAIN FINDINGS: There are no infiltrates. There are no pleural effusions. There is no pneumothorax. Cardiac silhouette and mediastinum appear within normal limits. IMPRESSION: No active pulmonary findings. at 0153 Reported and signed by: Lobito Rain M.D. CC: Moiz Freedman MD; José Miguel Alcantara echnologist: Evelia Torres [facility] Date /Time/By: 01/03/2019 (015) : By: [email or web address] Orig Print D/T: S: 019 (2143) PAGE 1 Signed Report BASIC METABOLIC [id number] 01:25:00* Test Item Value Reference Range Interpretation Comments SODIUM (test code = NA) 142 mmol/L 136-145 N POTASSIUM (test code = K) 3.7 mmol/L 3.5-5.1 N CHLORIDE (test code = CL) 106.0 mmol/L 98-107 N CARBON DIOXIDE (test code = CO2) 28.0 mmol/L 21-32 N ANION GAP (test code = GAP) 11.7 10-20 N GLUCOSE (test code = GLU) 117 mg/dL 74-106 H BLOOD UREA NITROGEN (test code = BUN) 11 mg/dL 7-18 N GLOMERULAR FILTRATION RATE (test code = GFR) > 60 mL/min >=60 Estimated GFR by using Modified MDRD formula.Chronic kidney disease is defined as either kidney damageor GFR <60 mL/min/1.73 m2 for >3 months. CREATININE (test code = CREAT) 0.70 mg/dL 0.55-1.02 N Note change in reference range due to change in reagent. BUN/CREATININE RATIO (test code = BUN/CREA) 15.0 10-20 N CALCIUM (test code = CA) 9.1 mg/dL 8.5-10.1 N [id number] 01:25:00* Test Item Value Reference Range Interpretation Comments TROPONIN-I (test code = TROPI) <0.015 ng/mL 0-0.045 N BASIC METABOLIC [id number] 01:14:00* Test Item Value Reference Range Interpretation Comments SODIUM (test code = NA) 142 mmol/L 136-145 N POTASSIUM (test code = K) 3.7 mmol/L 3.5-5.1 N CHLORIDE (test code = CL) 106.0 mmol/L 98-107 N CARBON DIOXIDE (test code = CO2) mmol/L 21-32 ANION GAP (test code = GAP) 10-20 GLUCOSE (test code = GLU) mg/dL 74-106 BLOOD UREA NITROGEN (test code = BUN) mg/dL 7-18 GLOMERULAR FILTRATION RATE (test code = GFR) mL/min >=60 CREATININE (test code = CREAT) mg/dL 0.55-1.02 BUN/CREATININE RATIO (test code = BUN/CREA) 10-20 CALCIUM (test code = CA) mg/dL 8.5-10.1 [id number] 01:14:00* Test Item Value Reference Range Interpretation Comments TROPONIN-I (test code = TROPI) ng/mL 0-0.045 CBC W/O [id number] 01:05:00* Test Item Value Reference Range Interpretation Comments WHITE BLOOD CELL (test code = WBC) 7.3 K/mm3 4.5-12.5 N RED BLOOD CELL (test code = RBC) 4.41 mill/mm3 3.7-5.2 N HEMOGLOBIN (test code = HGB) 12.4 gram/dL 11.5-15.5 N HEMATOCRIT (test code = HCT) 38.9 % 36.0-46.0 N MEAN CELL VOLUME (test code = MCV) 88.2 fL 80-98 N MEAN CELL HGB (test code = MCH) 28.1 picogram 27.0-33.0 N MEAN CELL HGB CONCETRATION (test code = MCHC) 31.9 gram/dL 33.0-36. 0 L RED CELL DISTRIBUTION WIDTH (test code = RDW) 13.5 % 11.6-16. 2 N PLATELET COUNT (test code = PLT) 242 K/mm3 150-450 N MEAN PLATELET VOLUME (test code = MPV) 11.7 fL 6.7-11.0 H CBC W/O [id number] 01:04:00* Test Item Value Reference Range Interpretation Comments WHITE BLOOD CELL (test code = WBC) K/mm3 4.5-12.5 RED BLOOD CELL (test code = RBC) mill/mm3 3.7-5.2 HEMOGLOBIN (test code = HGB) 12.4 gram/dL 11.5-15.5 N HEMATOCRIT (test code = HCT) 38.9 % 36.0-46.0 N MEAN CELL VOLUME (test code = MCV) fL 80-98 MEAN CELL HGB (test code = MCH) picogram 27.0-33.0 MEAN CELL HGB CONCETRATION (test code = MCHC) gram/dL 33.0-36. 0 RED CELL DISTRIBUTION WIDTH (test code = RDW) % 11.6-16. 2 PLATELET COUNT (test code = PLT) K/mm3 150-450 MEAN PLATELET VOLUME (test code = MPV) fL 6.7-11.0 - XR CHEST 1 [id number] 15:07:00 FAX: José Miguel Pisano DO [phone] [place]: St: [facility] FAX: Winston Issa NP [phone] Name: HEAVEN FREEDMAN [facility] : 1970 Age/S: 47/F [address] Unit #: [id number] Loc: [place] [address] Phys: Winston Issa NP Acct: [id number] Dis Date: Status: UNK PHONE #: [phone] Exam Date: 05/13/2018 1503 FAX #: [phone] Reason: CHEST PAIN EXAMS: CPT CODE: [id number] XR CHEST 1 V 93789 REASON FOR EXAM: CHEST PAIN EXAM ORDER DATE: 05/13/2018 2:51 PM Ordering Christina: Winston Issa NP PROCEDURE: - XR CHEST 1 V COMPARISON: FINDINGS: Portable AP frontal view of the chest obtained at 3:01 PM shows clear lungs. There is no evidence of consolidation. There is no evidence of effusion. The heart size is within normal limits. Pulmonary vasculatures are unremarkable. IMPRESSION: No active disease. at 1500 Reported and signed by: Angelito Lucero M.D. CC: oJsé Miguel Alcantara DO; Winston Issa NP Technologist: NIKOLE ARMANDO) Vilma Date/Time/By: 05/13/2018 (1115) : By: Dalton Orig Print D/T: S: 05/13/2018 (6706) PAGE 1 Signed Report
[2020-08-04 11:03] LABS: ALANINE AMINOTRANSFERASE 42 IU/L (0-55); ALBUMIN 4.5 g/dL (3.5-5.0); ALBUMIN/GLOBULIN RATIO 1.3 (0.8-2.0); ALKALINE PHOSPHATASE 104 IU/L (40-150); ANION GAP 11.8 mmol/L (8-16); BLOOD UREA NITROGEN 7 mg/dL (7-26); BUN/CREATININE RATIO 9 (6-25); CALCIUM 9.5 mg/dL (8.4-10.2); CARBON DIOXIDE 26 mmol/L (22-29); CHLORIDE 104 mmol/L (98-107); CREATININE, SERUM 0.79 mg/dL (0.57-1.11); EST GLOMERULAR FILTRATION RATE > 60 ML/MIN (60-); GLUCOSE 105 mg/dL (74-118); POTASSIUM 3.8 mmol/L (3.5-5.1); SODIUM 138 mmol/L (136-145)
[2020-08-04] MEDS ORDERED: KEFLEX500 MG PO (11:44)
[2020-08-04] MEDS ORDERED: PANTOPRAZOLE SOD 40 MG TABEC PO ONE (12:00)
--- NOTE | 2020-08-04 12:02 | NUR ---
Pt is now report pain is more suprapubic and epigastric. She is reporting a concern for
[2020-08-04] MEDS ORDERED: IOPAMIDOL 370 MG/ML 200 ML INFUS..BTL INJ ONE (12:32)
[2020-08-04] MEDS ORDERED: SODIUM CHLORIDE 0.9% 50ML 50 ML ONE (12:32)
[2020-08-04] MEDS ORDERED: LIDOCAINE VISC 2% SOLN 15 ML UDC ONE (12:56)
[2020-08-04] MEDS ORDERED: MAGNESIUM/ALUMINUM/SIMETHICONE 30 ML UDC ONE (12:57)
[2020-08-04] MEDS ORDERED: BELLADONNA ALK/PHENOBARBITAL 5 ML UDC ONE (12:57)
--- NOTE | 2020-08-04 13:04 | Diagnostic Imaging Report ---
EXAM: CT Abdomen and Pelvis WITH intravenous contrast INDICATION: Abdominal pain COMPARISON: None TECHNIQUE: Abdomen and pelvis were scanned utilizing a multidetector helical scanner from the lung base to the pubic symphysis after administration of IV contrast. Coronal and sagittal reformations were obtained. Routine protocol was performed. Scan was performed during portal venous phase. IV CONTRAST: 100mL of Isovue 370 ORAL CONTRAST: Water RADIATION DOSE: Total DLP: 821 mGy*cm Dose modulation, iterative reconstruction, and/or weight based adjustment of the mA/kV was utilized to reduce the radiation dose to as low as reasonably achievable. FINDINGS: LOWER THORAX: Normal. HEPATOBILIARY: Hepatic steatosis. No focal liver lesion. No biliary ductal dilation. Status post cholecystectomy. SPLEEN: No splenomegaly. PANCREAS: No focal masses or ductal dilatation. ADRENALS: No adrenal nodules. KIDNEYS/URETERS: No hydronephrosis, stones, or solid mass lesions. PELVIC ORGANS/BLADDER: 2.9 cm left adnexal cyst. PERITONEUM / RETROPERITONEUM: No free air or fluid. LYMPH NODES: No lymphadenopathy. VESSELS: Unremarkable. GI TRACT: Mild diverticulosis. No CT evidence of diverticulitis. No abnormal bowel thickening. No bowel obstruction. Normal appendix. BONES AND SOFT TISSUES: No acute osseous injury. No suspicious lytic or blastic lesions. IMPRESSION: No acute findings in the abdomen or pelvis. Hepatic steatosis. Diverticulosis without CT evidence of diverticulitis. Signed by: Trinity Chou MD on 08/04/2020 1:00 PM
[2020-08-04 13:26] VITALS: BP 136/99
[2020-08-04] MEDS ORDERED: DONNATAL/LIDOCAINE/MAALOX 30 ML SUSP PO SCH (15:00)
== END 2020-08-04 13:30 | disposition home or self-care (01) ==
LOC: ER 10:57
DX: R10.13 Epigastric pain (principal); M54.5 Low back pain; R11.0 Nausea
CPT/HCPCS: 36415; 74177; 80053; 81001; 83690; 84702; 85025; 93005; 99284; Q9967; S0164